=== PATIENT | female | born 1970 | race African-American/Black ===

== ENCOUNTER 2016-07-23 06:20 | Emergency (ER) | payer OTHER ==
[~2016-07-23] VITALS: Ht 160 cm; Wt 104.5 kg
[2016-07-23 09:25] VITALS: BP 129/98
== END 2016-07-23 10:47 | disposition home or self-care (01) ==
LOC: EMS 06:21
DX: M75.91 Shoulder lesion, unspecified, right shoulder (principal)
CPT/HCPCS: 99284

== ENCOUNTER 2016-12-15 14:49 | Emergency (ER) | payer OTHER ==
[~2016-12-15] VITALS: Ht 160 cm; Wt 105.5 kg
[2016-12-15 17:09] VITALS: BP 140/88
== END 2016-12-15 17:16 | disposition home or self-care (01) ==
LOC: EMS 14:51
DX: R60.0 Localized edema (principal); M79.604 Pain in right leg; M79.89 Other specified soft tissue disorders; Z91.040 Latex allergy status
CPT/HCPCS: 93971; 99284

== ENCOUNTER 2017-04-08 06:46 | Emergency (ER) | payer OTHER ==
[~2017-04-08] VITALS: Ht 160 cm; Wt 104.5 kg
[2017-04-08 06:50] VITALS: BP 123/86
[2017-04-08] MEDS ORDERED: HYDR25TA PO (06:58)
[2017-04-08] MEDS ORDERED: ACETAMINOPHEN 325 MG TABLET PO ONE (07:45)
[2017-04-08 08:45] LABS: INFLUENZA TYPE B NEGATIVE FOR TYPE B (NEGATIVE)
== END 2017-04-08 09:41 | disposition home or self-care (01) ==
LOC: EMS 06:47
DX: J32.9 Chronic sinusitis, unspecified (principal); M79.1 Myalgia; I10 Essential (primary) hypertension; Z91.040 Latex allergy status
CPT/HCPCS: 87804; 99284

== ENCOUNTER 2017-07-06 10:30 | Emergency (ER) | payer OTHER ==
[~2017-07-06] VITALS: Ht 160 cm; Wt 102.3 kg
[~2017-07-06 10:30] MED LIST: HYDR25TA PO
[2017-07-06 11:15] VITALS: BP 142/94
[2017-07-06] MEDS ORDERED: IBUPROFEN 800 MG TABLET PO ONE (12:00)
== END 2017-07-06 12:34 | disposition home or self-care (01) ==
LOC: EMS 10:31
DX: S33.5XXA Sprain of ligaments of lumbar spine, initial encounter (principal); I10 Essential (primary) hypertension; Z98.890 Other specified postprocedural states; Z91.040 Latex allergy status; Z79.899 Other long term (current) drug therapy; X58.XXXA Exposure to other specified factors, initial encounter; Y93.89 Activity, other specified; Y92.89 Other specified places as the place of occurrence of the external cause; Y99.8 Other external cause status
CPT/HCPCS: 99282

== ENCOUNTER 2017-09-12 18:03 | Emergency (ER) | payer OTHER ==
[~2017-09-12] VITALS: Ht 160 cm; Wt 100.9 kg
[2017-09-12] MEDS ORDERED: KETOROLAC TROMETHAMINE 60 MG/2 ML VIAL IM ONE (18:45)
[2017-09-12 19:33] VITALS: BP 131/77
== END 2017-09-12 19:45 | disposition home or self-care (01) ==
LOC: EMS 18:35
DX: M54.31 Sciatica, right side (principal); I10 Essential (primary) hypertension; D57.3 Sickle-cell trait; Z91.040 Latex allergy status
CPT/HCPCS: 96372; 99283; J1885

== ENCOUNTER 2018-01-18 06:24 | Emergency (ER) | payer OTHER ==
[~2018-01-18] VITALS: Ht 160 cm; Wt 102.3 kg
[2018-01-18 07:47] VITALS: BP 126/74
== END 2018-01-18 08:00 | disposition home or self-care (01) ==
LOC: EMS 06:24
DX: J30.9 Allergic rhinitis, unspecified (principal); I10 Essential (primary) hypertension
CPT/HCPCS: 99283

== ENCOUNTER 2018-01-30 18:39 | Emergency (ER) | payer OTHER ==
[~2018-01-30] VITALS: Ht 160 cm; Wt 104.5 kg
[2018-01-30] MEDS ORDERED: PRED15SO57 PO (18:45)
[2018-01-30] MEDS ORDERED: FLUT16H NASAL (18:45)
[2018-01-30] MEDS ORDERED: AMOX1TAB16 PO (18:45)
[2018-01-30] MEDS ORDERED: FLUCONAZOLE 150 MG TABLET PO ONE (20:15)
[2018-01-30] MEDS ORDERED: CLOTRIMAZOLE 1% 15 GM CREAM TP ONE (20:15)
[2018-01-30 21:10] VITALS: BP 131/73
== END 2018-01-30 21:32 | disposition home or self-care (01) ==
LOC: EMS 18:40
DX: B37.3 Candidiasis of vulva and vagina (principal); B37.2 Candidiasis of skin and nail; I10 Essential (primary) hypertension; G89.29 Other chronic pain; M54.30 Sciatica, unspecified side; Z91.040 Latex allergy status; Z79.2 Long term (current) use of antibiotics; Z79.899 Other long term (current) drug therapy; Z98.890 Other specified postprocedural states
CPT/HCPCS: 99283

== ENCOUNTER 2018-03-25 17:33 | Emergency (ER) | payer OTHER ==
[~2018-03-25] VITALS: Ht 160 cm; Wt 104.5 kg
[~2018-03-25 17:33] MED LIST changes: +AMOX1TAB16 PO; +FLUT16H NASAL; -HYDR25TA PO; +PRED15SO57 PO
[2018-03-25 18:57] VITALS: BP 157/96
[2018-03-25] MEDS ORDERED: IBUPROFEN 600 MG TABLET PO ONE (19:30)
== END 2018-03-25 20:28 | disposition home or self-care (01) ==
LOC: EMS 17:34
DX: M25.511 Pain in right shoulder (principal); G89.29 Other chronic pain; I10 Essential (primary) hypertension; Z91.040 Latex allergy status

== ENCOUNTER 2018-09-26 16:16 | Emergency (ER) | payer OTHER ==
[~2018-09-26] VITALS: Ht 160 cm; Wt 100.0 kg
[2018-09-26] MEDS ORDERED: ATOR10TA84 PO (16:40)
[2018-09-26] MEDS ORDERED: AMLO-511 PO (16:40)
[2018-09-26] MEDS ORDERED: DEXAMETHASONE SOD PHOS 4 MG/ML 5 ML VIAL IM ONE (17:30)
[2018-09-26 17:53] VITALS: BP 125/63
== END 2018-09-26 18:15 | disposition home or self-care (01) ==
LOC: EMS 16:18
DX: L25.9 Unspecified contact dermatitis, unspecified cause (principal); I10 Essential (primary) hypertension; G89.29 Other chronic pain; Z91.040 Latex allergy status
CPT/HCPCS: 96372; 99283; J1100

== ENCOUNTER 2019-01-06 11:27 | Emergency (ER) | payer OTHER ==
[~2019-01-06] VITALS: Ht 160 cm; Wt 100.0 kg
[~2019-01-06 11:27] MED LIST changes: +AMLO5TAB9 PO; -AMOX1TAB16 PO; +ATOR10TA84 PO; -FLUT16H NASAL; -PRED15SO57 PO
[2019-01-06] MEDS ORDERED: BENZOCAINE/MENTHOL LOZENGE PO ONE (12:30)
[2019-01-06] MEDS ORDERED: AMOXICILLIN TRIHYDRATE 250 MG CAPSULE PO ONE (12:45)
[2019-01-06 13:19] VITALS: BP 129/78
== END 2019-01-06 13:19 | disposition home or self-care (01) ==
LOC: EMS 11:29
DX: J02.0 Streptococcal pharyngitis (principal); J34.89 Other specified disorders of nose and nasal sinuses; H92.03 Otalgia, bilateral; I10 Essential (primary) hypertension; Z91.040 Latex allergy status
CPT/HCPCS: 87430